=== PATIENT | male | born 1950 | race Caucasian/White ===

== ENCOUNTER → 2017-01-15 | Outpatient (CLI) | payer BC ==
[~2017-01-15] MED LIST: APIX5TAB PO; ASPI325T4 PO; ATOR40TA68 PO; CANA100T PO; DILT120C77 PO; FENO145T19 PO; GLIP-95 PO; LEVO100T82 PO; LISI-313 PO; METF500T4 PO; OMEP40CA6 PO; SITA100T8 PO
--- NOTE | 2017-01-15 16:20 | RADRPT ---
PROCEDURE: US DVT. CLINICAL INDICATION: Left calf pain with lump. TECHNIQUE: Multiple longitudinal and transverse images of the left lower extremity veins were obta ined with colón scale and color Doppler imaging. 2D grayscale measurements with compression, color D oppler flow, and augmentation was performed. The calf veins were interrogated as well. COMPARISON: 09/14/2015 FINDINGS: The left common femoral, superficial femoral and popliteal veins are normally compressible throughou t. Color flow demonstrates normal filling of the vessel. Normal waveforms are visualized and there is normal response to augmentation. There is a 1.2 x 2.6 cm subcutaneous oval-shaped focus in the left calf. This demonstrates very mil d vascularity. IMPRESSION: 1. No evidence of a deep vein thrombosis involving the left lower extremity. 2. 1.2 x 2.6 cm oval-shaped subcutaneous focus in the left calf. This may represent a focal inflam matory process. Clinical follow-up is suggested. RPTAT: [facility] Physician Willard Date Time Electronically viewed and signed by Physician Willard on 01/15/2017 16:20 /
== END | disposition home or self-care (01) ==
LOC: VAS 15:19
PROVIDERS: ATTEND Family Medicine Sports Medicine
DX: I82.402 Acute embolism and thrombosis of unspecified deep veins of left lower extremity (principal); R22.42 Localized swelling, mass and lump, left lower limb
CPT/HCPCS: 93971

== ENCOUNTER 2017-08-26 12:18 | Day surgery (SDC) | payer BC ==
[~2017-08-26] VITALS: Ht 170.2 cm; Wt 103.8 kg
[2017-08-26 13:17] VITALS: BP 135/78; PULSE 95; RESP 18
[2017-08-26] MEDS ORDERED: PROPOFOL 20 ML ONE (13:20)
[2017-08-26] MEDS ORDERED: LIDOCAINE 2% (SDV) 5 ML INJ ONE (13:20)
[2017-08-26 13:42] VITALS: Ht 170.2 cm; Wt 103.8 kg
--- NOTE | 2017-08-26 13:46 | OPPN ---
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 The Olympus video endoscope was easily passed in patient's esophagus. Instrument was advanced to the stomach. The pylorus was seen. The duodenal bulb and second portion duodenum were examined. These appeared normal. The stomach was carefully examined including turnaround procedure. This was within normal limits. The diaphragmatic pinch was seen at 42 cm. The Z line appeared to begin at 38 cm. Mcmillan's esophagus like mucosa extended from that area to 32 cm in a noncontinuous manner. Terminal Operator four -quadrant biopsies were performed at 38, 36, and 34 cm. In addition biopsies were performed at 32 cm were an additional island of Mcmillan's appearing tissue was noted. There was no intra-bleeding from the sites. The patient tolerated procedure well. Complications: None Impression: 1. 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 Hiatal hernia-4 cm Plan: 1. Continue proton pump inhibitor therapy 2. Await biopsy results HERMES JUNG MD Aug 26, 2017 13:46
[2017-08-26 14:25] VITALS: BP 124/68; PULSE 80; RESP 24
[2017-08-26] MEDS ORDERED: jardiance PO (15:20)
== END 2017-08-26 15:51 | disposition home or self-care (01) ==
LOC: GIL 12:18
PROVIDERS: ATTEND Internal Medicine Gastroenterology
DX: K22.70 Barrett's esophagus without dysplasia (principal); I10 Essential (primary) hypertension; E11.9 Type 2 diabetes mellitus without complications; E78.5 Hyperlipidemia, unspecified; E66.01 Morbid (severe) obesity due to excess calories; Z68.35 Body mass index [BMI] 35.0-35.9, adult; E03.9 Hypothyroidism, unspecified